=== PATIENT | male | born 1975 | race Caucasian/White ===

== ENCOUNTER 2020-07-23 09:30 | Outpatient (RCR) | payer OTHER, SELFPAY ==
[2020-07-23 09:34] VITALS: BMI 27.4
[2020-07-23 09:37] VITALS: BMI 27.4
== END 2020-08-05 14:31 | disposition home or self-care (01) ==
LOC: ANHDMC 09:30
PROVIDERS: PCP Family Medicine; Visit Provider Physician Assistant
DX: E11.65 Type 2 diabetes mellitus with hyperglycemia (principal); F84.0 Autistic disorder; Z71.89 Other specified counseling; Z71.3 Dietary counseling and surveillance
CPT/HCPCS: 97802; G0108

== ENCOUNTER 2020-09-17 15:28 | Outpatient (RCR) | payer OTHER, SELFPAY | END 2020-12-02 15:17 | disposition home or self-care (01) | LOC: ANHDMC 15:28 | PROVIDERS: PCP Family Medicine; Visit Provider Physician Assistant | DX: E11.65 Type 2 diabetes mellitus with hyperglycemia (principal); F84.0 Autistic disorder; Z71.89 Other specified counseling | CPT/HCPCS: G0108 ==

== ENCOUNTER 2021-01-17 14:39 | Outpatient (CLI) | payer OTHER, SELFPAY ==
--- NOTE | 2021-01-17 16:12 | WPDPFTINT ---
PFT Procedure Performed PFT Procedure Performed Spirometry with Pre/Post Bronchodilator Plethysmography (Lung Vol) Diffusing Cap (DLCO) Flow Vol Loop PFT Interpretation This is a pulmonary function test with pre and post-bronchodilator spirometry, plethysmography and diffusing capacity. The test was performed and results interpreted in accordance with the 2019 and 2005 ATS/ERS Task Force guidelines respectively using the Global Lung Function Initiative-2012 reference equations. Patient demonstrated good effort and cooperation. Reproducibility criteria were met. The quality of the pre bronchodilator spirometry maneuver was Grade A and post bronchodilator spirometry maneuver was Grade C. Findings: Spirometry: the contour of the inspiratory and expiratory flow tracing are normal. The pre bronchodilator FVC is 4.55 L, 101% predicted. The pre bronchodilator FEV1 is 3.24 L, 89% predicted. The FEV1: FVC ratio 71%. The post bronchodilator FVC is 4.39 L, representing a 3% decrease. The post bronchodilator FEV1 is 3.13 L, representing a 3% decrease. Plethysmography: The total lung capacity is 5.97 L, 97% predicted. The functional residual capacity is 2.57 L, 85% predicted. The residual volume is 1.43 L, 85% predicted. Diffusing capacity: The absolute diffusion capacity is 30.0, 98% predicted. The diffusing capacity corrected for alveolar volume is 6.46, 129% predicted. Impression: The spirometry is normal without evidence of an obstructive abnormality. There is no significant improvement after inhaling a single dose of albuterol. The lung volumes are normal. The Absolute diffusion capacity is normal and is increased when corrected for alveolar volume. There are no prior studies for comparison
== END 2021-01-17 14:40 | disposition home or self-care (01) ==
PROVIDERS: PCP Family Medicine; Visit Provider Physician Assistant
DX: R06.02 Shortness of breath (principal)
CPT/HCPCS: 94060; 94726; 94729